=== PATIENT | female | born 1980 | race Two or more races ===

== ENCOUNTER 2017-03-22 23:54 | Emergency (ER) | payer SELFPAY ==
[~2017-03-22] VITALS: Ht 162.6 cm; Wt 72.6 kg
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
[2017-03-23] MEDS ORDERED: ONDANSETRON HCL 4 MG TABLET PO ONE (00:15)
[2017-03-23] MEDS ORDERED: AMLO1TAB59 PO (00:17)
[2017-03-23] MEDS ORDERED: ONDANSETRON HCL 4 MG TABLET ONE (00:21)
[2017-03-23] MEDS ORDERED: CLON0.1T PO (00:33)
[2017-03-23] MEDS ORDERED: ATEN25TA PO (00:33)
[2017-03-23] MEDS ORDERED: LEVO200T9 PO (00:34)
[2017-03-23] MEDS ORDERED: IV NORMAL SALINE 1000 ML BAG IV ONE (00:45)
[2017-03-23] MEDS ORDERED: ONDANSETRON 4 MG/2 ML VIAL IV ONE (00:45)
[2017-03-23] MEDS ORDERED: MORPHINE SULFATE 2 MG/1 ML DISP.SYRIN IV ONE (00:45)
[2017-03-23 00:54] LABS: *BILIRUBIN,URIN NEGATIVE (NEGATIVE); *BLOOD, URINE Trace-intact (NEGATIVE); *CLARITY,URINE SLIGHTLY CLOUDY (CLEAR); *COLOR,URINE YELLOW (YELLOW); *KETONES,URINE NEGATIVE (NEGATIVE); *PROTEIN,URINE 1+ (NEGATIVE); LEUKOCYTE ESTERASE ,URINE NEGATIVE (NEGATIVE); NITRITE, URINE NEGATIVE (NEGATIVE); UGLUCOSE NEGATIVE (NEGATIVE)
[2017-03-23 01:00] LABS: BACTERIA,URINE MODERATE /HPF (NONE SEEN); RBC,URINE 0-3 /HPF (0-3); SQUAMOUS EPITHELIAL CELL,UR MANY /HPF (NONE SEEN)
[2017-03-23 01:30] LABS: ALANINE AMINOTRANSFERASE 14 U/L (14-59); ALBUMIN 3.6 g/dL (3.4-5.0); ALKALINE PHOSPHATASE 54 U/L (50-136); ASPARTATE AMINOTRANSFERASE 10 U/L (15-37); BASOPHILS # (AUTO) 0.1 K/uL (0.0-8.0); BASOPHILS % (AUTO) 0.5 % (0.0-2.0); BILIRUBIN,DIRECT < 0.1 mg/dL (0.0-0.2); BILIRUBIN,TOTAL 0.3 mg/dL (0.2-1.0); CALCIUM 9.2 mg/dL (8.5-10.1); CARBON DIOXIDE 26 mmol/L (21-32); CHLORIDE 104 mmol/L (98-107); CREATININE 0.8 mg/dL (0.6-1.3); EOSINOPHILS # (AUTO) 0.2 K/uL (0.0-0.7); EOSINOPHILS % (AUTO) 1.5 % (0.0-7.0); GFR 82 mL/min (>60); GLUCOSE 110 mg/dL (74-106); HEMATOCRIT 38.7 % (31.2-41.9); HEMOGLOBIN 13.6 g/dL (10.9-14.3); LIPASE 105 U/L (73-393); LYMPHOCYTES % (AUTO) 13.4 % (20.5-51.5); MEAN CORPUSCULAR HEMOGLOBIN 30.1 uug (24.7-32.8); MEAN CORPUSCULAR HGB CONC 35 g/dL (32.3-35.6); MEAN CORPUSCULAR VOLUME 85.5 fL (75.5-95.3); MONOCYTES # (AUTO) 0.7 K/uL (2.0-10.0); MONOCYTES % (AUTO) 4.6 % (0.0-11.0); NEUTROPHILS # (AUTO) 12.2 K/uL (1.8-8.9); PLATELET COUNT (AUTO) 332 K/uL (179-408); POTASSIUM 3.6 mmol/L (3.5-5.1); RED BLOOD CELL COUNT(AUTO) 4.53 MIL/uL (3.63-4.92); RED CELL DISTRIBUTION WIDTH 11.8 % (12.3-17.7); SODIUM SERUM 141 mmol/L (136-145); TOTAL PROTEIN, SERUM 8.3 g/dL (6.4-8.2); UREA NITROGEN, BLOOD 13 mg/dL (7-18); WHITE BLOOD COUNT (AUTO) 15.2 K/uL (3.8-11.8)
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
[2017-03-23] MEDS ORDERED: HYDROCODONE/APAP 5-325MG TABLET PO ONE (02:45)
--- NOTE | 2017-03-23 02:57 | NUR ---
Patient discharged to home in stable conditon. Written and verbal after care instructions given. Patient verbalizes understanding of instructions. pt walked out of ER unassisted with belongings and at side...
[2017-03-23] MEDS ORDERED: HYDROCODONE/APAP 5-325MG TABLET ONE (03:00)
[2017-03-23 03:27] VITALS: BP 142/98
== END 2017-03-23 03:29 | disposition home or self-care (01) ==
LOC: ER 23:55
DX: S39.91XA Unspecified injury of abdomen, initial encounter (principal); I10 Essential (primary) hypertension; Z88.0 Allergy status to penicillin; V49.9XXA Car occupant (driver) (passenger) injured in unspecified traffic accident, initial encounter; Y93.89 Activity, other specified; Y99.8 Other external cause status; Y92.89 Other specified places as the place of occurrence of the external cause
CPT/HCPCS: 36415; 74176; 80048; 80076; 81001; 83690; 84484; 84703; 85025; 93005; 99285; A4663; J7030; Q0162; 70030-TC